=== PATIENT | male | born 1945 | race Caucasian/White ===

== ENCOUNTER 2017-05-29 11:13 | Emergency (ER) | payer OTHER, MEDICARE ==
[~2017-05-29] VITALS: Ht 185.4 cm; Wt 95.5 kg
[~2017-05-29 11:13] MED LIST: ACET325 PO; LORTA5 PO; MICA80TA2 PO; OMEP40CA2 PO; PRAV40TA PO; TAB-TAB PO
[2017-05-29 11:14] VITALS: BP 148/70; PULSE 74; RESP 16; TEMP 99.5; O2SAT 98
[2017-05-29] MEDS ORDERED: ACETAMINOPHEN 325 MG TAB PO ONE (11:45)
[2017-05-29] MEDS ORDERED: CYCLOBENZAPRINE HCL 10 MG TAB PO ONE (11:45)
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
[2017-05-29 12:52] VITALS: RESP 18
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
[2017-05-29] MEDS ORDERED: CYCL10TA PO (13:19)
== END 2017-05-29 13:29 | disposition home or self-care (01) ==
LOC: NEPD 11:13
DX: S16.1XXA Strain of muscle, fascia and tendon at neck level, initial encounter (principal); M19.90 Unspecified osteoarthritis, unspecified site; J44.9 Chronic obstructive pulmonary disease, unspecified; K21.9 Gastro-esophageal reflux disease without esophagitis; I10 Essential (primary) hypertension; F17.290 Nicotine dependence, other tobacco product, uncomplicated; V43.52XA Car driver injured in collision with other type car in traffic accident, initial encounter; Z79.899 Other long term (current) drug therapy
CPT/HCPCS: 70450; 72125; 99285